=== PATIENT | female | born 1950 ===

== ENCOUNTER 2019-04-09 09:24 | Outpatient (CLI) | payer OTHER ==
[~2019-04-09 09:24] MED LIST: ADVAIR HFA 230/12 GM IH; GLUCOTROL10 MG; JARDANCE PO; MICARDIS HCT1 UDTA2; NORVASC2.5 M1 PO; ONGLYZA5 MG PO; PROTONIX40 M1 PO; SINGULAIR10 MG; SYNTH PO; SYNTHROID50 MCG; TRAM1TAB98 PO; ZITHROMAX TRI-500 MG PO
== END 2019-04-09 10:47 | disposition home or self-care (01) ==
LOC: NUCLEAR 09:24
DX: I70.213 Atherosclerosis of native arteries of extremities with intermittent claudication, bilateral legs (principal); I87.2 Venous insufficiency (chronic) (peripheral)

== ENCOUNTER 2019-04-14 07:54 | Outpatient (CLI) | payer OTHER | END 2019-04-14 10:02 | disposition home or self-care (01) | LOC: NUCLEAR 07:54 | DX: K30 Functional dyspepsia (principal); K31.84 Gastroparesis; I87.2 Venous insufficiency (chronic) (peripheral) | CPT/HCPCS: 78264; 93970; A9541 ==